=== PATIENT | male | born 1980 | race Caucasian/White ===

== ENCOUNTER 2019-09-08 04:18 | Emergency (ER) | payer OTHER ==
[~2019-09-08] VITALS: Ht 172.7 cm; Wt 76.9 kg
[2019-09-08] MEDS ORDERED: DIAZEPAM 5 MG TABLET ONE (04:46)
[2019-09-08] MEDS ORDERED: DIPH,PERTUSS(ACELL),TET VAC/PF 0.5 ML IM-VACC ONE ×2 (04:46→05:00)
[2019-09-08] MEDS ORDERED: DIAZEPAM 5 MG TABLET PO ONE (05:00)
[2019-09-08] MEDS ORDERED: ONDANSETRON ODT 4 MG PO ONE (06:00)
[2019-09-08] MEDS ORDERED: HYDROcodone/APAP 5/325 TABLET PO ONE (06:00)
[2019-09-08] MEDS ORDERED: ONDANSETRON ODT 4 MG ONE (06:06)
[2019-09-08] MEDS ORDERED: HYDROcodone/APAP 5/325 TABLET ONE (06:07)
[2019-09-08] MEDS ORDERED: MORPHINE SULFATE 4 MG/ML, 1ML ONE ×3 (06:38→09:20)
[2019-09-08] MEDS ORDERED: ONDANSETRON 2MG/ML, 2ML ONE (06:38)
[2019-09-08] MEDS: MORPHINE SULFATE 4 MG/ML, 1ML IVPush PRN ×2 (06:52→07:31)
--- NOTE | 2019-09-08 06:59 | NUR ---
REPORT RECIEVED FROM BRENDA STEPHENS. PATIENT RESTING IN BED, PIV PLACED BY MONCHO RN
[2019-09-08] MEDS ORDERED: ONDANSETRON 2MG/ML, 2ML IVPush ONE (07:00)
[2019-09-08] MEDS ORDERED: SODIUM CHLORIDE FLUSH 10ML SYR IVF ONE (07:00)
[2019-09-08] MEDS ORDERED: SODIUM CHLORIDE 0.9% 1,000ML IVBOLUS ONE (07:00)
--- NOTE | 2019-09-08 08:00 | NUR ---
MEDICATED ORDERED, NO CHANGES IN NEURO. PATIENT AND FAMILY RESTING IN ROOM.
--- NOTE | 2019-09-08 08:44 | NUR ---
Patient is resting comfortably in bed. Vital Signs within normal limits.
[2019-09-08] MEDS ORDERED: morphine SULFATE 10 MG/ML, 1ML IVPush ONE (09:00)
--- NOTE | 2019-09-08 09:08 | NUR ---
REPORT TO MARK STEPHENS
[2019-09-08 09:17] VITALS: BP 148/76
--- NOTE | 2019-09-08 09:17 | NUR ---
REPORT FROM SHIRA. PT REPORT PAIN AT BITE SITE. VS STABLE.
--- NOTE | 2019-09-08 09:32 | NUR ---
Patient/Caregiver given discharge instructions and they have confirmed that they understand the instructions. Patient ambulatory with steady gait.
== END 2019-09-08 09:35 | disposition home or self-care (01) ==
LOC: ED 06:24
DX: S30.860A Insect bite (nonvenomous) of lower back and pelvis, initial encounter (principal); S40.262A Insect bite (nonvenomous) of left shoulder, initial encounter
CPT/HCPCS: 90471; 90715; 96374; 96376; 99284; J2270; J7030; Q0162